=== PATIENT | female | born 1945 | race Caucasian/White ===

== ENCOUNTER 2017-02-18 10:42 | Emergency (ER) | payer MEDICARE, BC ==
[~2017-02-18 10:42] MED LIST: ANTIVERT25 M1 PO; CALCIUM600 M1 PO; CARAFATE1 GM/10 M1 PO; CARBIDOPA-LEVO E1 EA PO; CLONAZEPAM1 M2 PO; CRESTOR20 MG/TAB PO; LANSOPRAZOL-AM1 EACH PO; LISINOPRIL-HCT1 EAC1 PO; MACROBID 100 M100 M1 PO; MULTAQ400 M1 PO; NORCO 5-325 TA1 EACH PO; POTASSIUM CHLO10 ME2 PO; PROTONIX40 M2 PO; PYRIDIUM200 M2 PO; SERTRALINE HCL100 M5 PO; SINEMET 25-1001 EAC1 PO; VISINE TEARS DR15 ML OP
[2017-02-18] MEDS ORDERED: PROTONIX40 M2 PO (10:48)
[2017-02-18] MEDS ORDERED: POLYETHYLENE GL17 G1 PO (10:48)
[2017-02-18] MEDS ORDERED: PRINIVIL20 M1 PO (10:49)
[2017-02-18] MEDS ORDERED: FERROUS GLUCON240 MG PO (10:52)
[2017-02-18 11:34] LABS: BASO % 0.7 % (0-2); EOS % 5.3 % (0-7); EOSINOPHIL ABSOLUTE COUNT 0.2 tho/cmm (0.0-0.7); HCT-HEMATOCRIT 32.9 % (34.0-49.0); HGB-HEMOGLOBIN 11.1 gm/dl (12.0-15.5); LYMPH % 34.5 % (20-45); LYMPH ABSOLUTE COUNT 1.4 tho/cmm (0.8-4.5); MCH (MEAN CORPUSCULAR HGB) 30.6 pg (28.0-32.0); MCHC MEAN CORPUSCULAR HGB CONC 33.7 % (32.0-36.0); MCV (MEAN CELL VOLUME) 90.6 fl (82.0-96.0); MEAN PLATELET VOLUME 9.8 cmc (9.4-12.4); MONO % 9.2 % (0-12); MONOCYTE ABSOLUTE COUNT 0.4 tho/cmm (0.0-1.2); NEUTROPHIL ABSOLUTE COUNT 2.1 tho/cmm (1.6-8.0); NEUTROPHIL-AUTOMATED 2.1 tho/cmm (1.6-8.0); NEUTROPHILS % 50.3 % (40-80); PLATELET COUNT 229 tho/cmm (150-450); RED BLOOD COUNT 3.63 mil/cmm (4.00-5.20); RED CELL DISTRIBUTION WIDTH 13.9 % (12.4-16.4); WHITE BLOOD COUNT 4.1 tho/cmm (4.0-10.0)
[2017-02-18 11:53] LABS: URINE BILIRUBIN NEGATIVE (NEG); URINE BLOOD NEGATIVE (NEG); URINE GLUCOSE (UA) NEGATIVE (NEG); URINE KETONE SMALL (NEG); URINE LEUKOCYTE ESTERASE NEGATIVE (NEG); URINE NITRITE NEGATIVE (NEG); URINE PROTEIN NEGATIVE (NEG); URINE SPECIFIC GRAVITY 1.015 (1.003-1.030)
[2017-02-18 11:55] LABS: URINE APPEARANCE CLEAR; URINE COLOR YELLOW
[2017-02-18 11:57] LABS: ALB/GLOB RATIO 1.1 (0.8-2.0); ALBUMIN 3.7 g/dl (3.5-5.0); ALKALINE PHOSPHATASE 70 U/L (33-138); ALT/SGPT 14 U/L (12-78); ANION GAP 14 mmol/L (0-20); AST/SGOT 27 U/L (10-40); BILIRUBIN,TOTAL 0.3 mg/dl (0-1.5); BLOOD UREA NITROGEN 9 mg/dl (6-24); CALCIUM 9.1 mg/dl (8.5-10.5); CARBON DIOXIDE-VENOUS 25 mmol/L (22-32); CHLORIDE 103 mmol/l (96-110); CREATININE 0.78 mg/dl (0.50-1.10); GLUCOSE 85 mg/dL (70-110); LIPASE 145 U/L (73-393); POTASSIUM 4.3 mmol/L (3.7-5.1); SODIUM 138 mmol/L (135-145); eGFR VALUE FOR BLACK 87 mL/Min
[2017-02-18 12:02] LABS: URINE RBC 0 /[HPF] (0-5); URINE WBC 0 /[HPF] (0-5)
[2017-02-18] MEDS ORDERED: EYE DROPS15 M3 OP (13:12)
[2017-02-18] MEDS ORDERED: SENOKOT-S TABL1 EACH PO (14:16)
[2017-05-15] MEDS ORDERED: PROPRANOLOL HCL20 M2 PO (08:24)
[2017-05-15] MEDS ORDERED: DIFLUCAN100 M1 PO (08:25)
== END 2017-02-18 14:41 ==
LOC: EDMED 10:42
PROVIDERS: Emergency Medicine
DX: K59.00 Constipation, unspecified (principal); M54.5 Low back pain; I48.91 Unspecified atrial fibrillation; I25.10 Atherosclerotic heart disease of native coronary artery without angina pectoris; I10 Essential (primary) hypertension; G20 Parkinson's disease; Z90.710 Acquired absence of both cervix and uterus; Z98.890 Other specified postprocedural states; Z79.82 Long term (current) use of aspirin; Z79.899 Other long term (current) drug therapy
CPT/HCPCS: J1170; J2405; Q9967

== ENCOUNTER 2017-04-05 21:00 | Observation (INO) | payer MEDICARE, BC ==
[~2017-04-05 21:00] MED LIST changes: +EYE DROPS15 M3 OP; +FERROUS GLUCON240 MG PO; +POLYETHYLENE GL17 G1 PO; +PRINIVIL20 M1 PO; +SENOKOT-S TABL1 EACH PO
[2017-04-05 21:55] LABS: BASO % 0.3 % (0-2); EOS % 3.8 % (0-7); EOSINOPHIL ABSOLUTE COUNT 0.1 tho/cmm (0.0-0.7); HCT-HEMATOCRIT 25.1 % (34.0-49.0); HGB-HEMOGLOBIN 8.7 gm/dl (12.0-15.5); LYMPH ABSOLUTE COUNT 1.4 tho/cmm (0.8-4.5); MCH (MEAN CORPUSCULAR HGB) 29.3 pg (28.0-32.0); MCHC MEAN CORPUSCULAR HGB CONC 34.7 % (32.0-36.0); MCV (MEAN CELL VOLUME) 84.5 fl (82.0-96.0); MEAN PLATELET VOLUME 9.1 cmc (9.4-12.4); MONO % 11.9 % (0-12); MONOCYTE ABSOLUTE COUNT 0.4 tho/cmm (0.0-1.2); NEUTROPHIL ABSOLUTE COUNT 1.5 tho/cmm (1.6-8.0); NEUTROPHIL-AUTOMATED 1.5 tho/cmm (1.6-8.0); PLATELET COUNT 300 tho/cmm (150-450); RED BLOOD COUNT 2.97 mil/cmm (4.00-5.20); RED CELL DISTRIBUTION WIDTH 13.1 % (12.4-16.4); URINE BILIRUBIN NEGATIVE (NEG); URINE BLOOD SMALL (NEG); URINE GLUCOSE (UA) NEGATIVE (NEG); URINE KETONE NEGATIVE (NEG); URINE LEUKOCYTE ESTERASE POSITIVE (NEG); URINE NITRITE NEGATIVE (NEG); URINE PROTEIN NEGATIVE (NEG); WHITE BLOOD COUNT 3.4 tho/cmm (4.0-10.0)
[2017-04-05 21:56] LABS: URINE APPEARANCE CLOUDY; URINE COLOR YELLOW
[2017-04-05 22:01] LABS: URINE RBC 0 /[HPF] (0-5); URINE WBC 15-20 /[HPF] (0-5)
[2017-04-05 22:12] LABS: ALBUMIN 3.3 g/dl (3.5-5.0); ALKALINE PHOSPHATASE 69 U/L (33-138); ALT/SGPT 11 U/L (12-78); ANION GAP 11 mmol/L (0-20); AST/SGOT 18 U/L (10-40); BILIRUBIN,TOTAL 0.3 mg/dl (0-1.5); BLOOD UREA NITROGEN 6 mg/dl (6-24); CALCIUM 8.6 mg/dl (8.5-10.5); CARBON DIOXIDE-VENOUS 26 mmol/L (22-32); CHLORIDE 102 mmol/l (96-110); CREATININE 0.71 mg/dl (0.50-1.10); GLUCOSE 94 mg/dL (70-110); LIPASE 144 U/L (73-393); SODIUM 136 mmol/L (135-145); eGFR VALUE FOR BLACK >90 mL/Min
[2017-04-05 22:17] LABS: POTASSIUM 2.9 mmol/L (3.7-5.1)
[2017-04-05 22:44] LABS: PROCALCITONIN <0.05 ng/ml (0.05-0.09)
[2017-04-06 03:17] LABS: POTASSIUM 3.3 mmol/L (3.7-5.1)
[2017-04-06 03:20] LABS: TSH-THYROID STIMULATING HORM. 0.72 uIU/ml (0.40-3.80)
[2017-04-06 06:52] LABS: BASO % 0.4 % (0-2); EOS % 3.4 % (0-7); EOSINOPHIL ABSOLUTE COUNT 0.1 tho/cmm (0.0-0.7); HGB-HEMOGLOBIN 7.8 gm/dl (12.0-15.5); LYMPH % 40.8 % (20-45); LYMPH ABSOLUTE COUNT 1.1 tho/cmm (0.8-4.5); MCH (MEAN CORPUSCULAR HGB) 28.6 pg (28.0-32.0); MCV (MEAN CELL VOLUME) 85.3 fl (82.0-96.0); MEAN PLATELET VOLUME 9.2 cmc (9.4-12.4); MONO % 9.4 % (0-12); MONOCYTE ABSOLUTE COUNT 0.3 tho/cmm (0.0-1.2); NEUTROPHIL ABSOLUTE COUNT 1.2 tho/cmm (1.6-8.0); NEUTROPHIL-AUTOMATED 1.2 tho/cmm (1.6-8.0); PLATELET COUNT 257 tho/cmm (150-450); RED BLOOD COUNT 2.73 mil/cmm (4.00-5.20); RED CELL DISTRIBUTION WIDTH 13.2 % (12.4-16.4); WHITE BLOOD COUNT 2.7 tho/cmm (4.0-10.0)
[2017-04-06 06:54] LABS: HCT-HEMATOCRIT 23.3 % (34.0-49.0); MCHC MEAN CORPUSCULAR HGB CONC 33.5 % (32.0-36.0)
[2017-04-06 06:59] LABS: BLOOD UREA NITROGEN 3 mg/dl (6-24); CALCIUM 8.2 mg/dl (8.5-10.5); CARBON DIOXIDE-VENOUS 23 mmol/L (22-32); CHLORIDE 115 mmol/l (96-110); CREATININE 0.57 mg/dl (0.50-1.10); GLUCOSE 78 mg/dL (70-110); eGFR VALUE FOR BLACK >90 mL/Min
[2017-04-06 07:09] LABS: ANION GAP 13 mmol/L (0-20); SODIUM 146 mmol/L (135-145)
[2017-04-06 07:10] LABS: POTASSIUM 4.8 mmol/L (3.7-5.1)
[2017-04-06] MEDS ORDERED: DICYCLOMINE HCL20 M1 PO (11:34)
[2017-04-06] MEDS ORDERED: MIRALAX17 G2 PO (11:34)
[2017-04-07 05:07] LABS: BASO % 0.9 % (0-2); EOS % 4.7 % (0-7); EOSINOPHIL ABSOLUTE COUNT 0.2 tho/cmm (0.0-0.7); HGB-HEMOGLOBIN 7.8 gm/dl (12.0-15.5); LYMPH % 36.8 % (20-45); LYMPH ABSOLUTE COUNT 1.2 tho/cmm (0.8-4.5); MCH (MEAN CORPUSCULAR HGB) 28.7 pg (28.0-32.0); MCHC MEAN CORPUSCULAR HGB CONC 32.9 % (32.0-36.0); MCV (MEAN CELL VOLUME) 87.1 fl (82.0-96.0); MEAN PLATELET VOLUME 9.2 cmc (9.4-12.4); MONO % 12.6 % (0-12); MONOCYTE ABSOLUTE COUNT 0.4 tho/cmm (0.0-1.2); NEUTROPHIL ABSOLUTE COUNT 1.4 tho/cmm (1.6-8.0); NEUTROPHIL-AUTOMATED 1.4 tho/cmm (1.6-8.0); PLATELET COUNT 263 tho/cmm (150-450); RED BLOOD COUNT 2.72 mil/cmm (4.00-5.20); RED CELL DISTRIBUTION WIDTH 13.8 % (12.4-16.4); WHITE BLOOD COUNT 3.2 tho/cmm (4.0-10.0)
[2017-04-07 05:08] LABS: HCT-HEMATOCRIT 23.7 % (34.0-49.0)
[2017-04-07 05:18] LABS: ANION GAP 11 mmol/L (0-20); BLOOD UREA NITROGEN 3 mg/dl (6-24); CALCIUM 8.2 mg/dl (8.5-10.5); CARBON DIOXIDE-VENOUS 25 mmol/L (22-32); CHLORIDE 108 mmol/l (96-110); CREATININE 0.62 mg/dl (0.50-1.10); GLUCOSE 84 mg/dL (70-110); POTASSIUM 4.1 mmol/L (3.7-5.1); SODIUM 140 mmol/L (135-145); eGFR VALUE FOR BLACK >90 mL/Min
[2017-05-15] MEDS ORDERED: PROPRANOLOL HCL20 M2 PO (08:24)
[2017-05-15] MEDS ORDERED: DIFLUCAN100 M1 PO (08:25)
== END 2017-04-07 15:06 ==
LOC: EDMED 21:00 → EMR2 04-06 02:07 → 5EB 04-06 02:20
PROVIDERS: Emergency Medicine; Hospitalist; Registered Nurse; ADMIT Hospitalist
DX: R53.1 Weakness (principal); N39.0 Urinary tract infection, site not specified; E87.6 Hypokalemia; R00.1 Bradycardia, unspecified; D50.9 Iron deficiency anemia, unspecified; I10 Essential (primary) hypertension; I48.0 Paroxysmal atrial fibrillation; I25.10 Atherosclerotic heart disease of native coronary artery without angina pectoris; K57.30 Diverticulosis of large intestine without perforation or abscess without bleeding; D72.819 Decreased white blood cell count, unspecified; R42 Dizziness and giddiness; G20 Parkinson's disease; F02.80 Dementia in other diseases classified elsewhere, unspecified severity, without behavioral disturbance, psychotic disturbance, mood disturbance, and anxiety; F32.9 Major depressive disorder, single episode, unspecified; F41.9 Anxiety disorder, unspecified; Z85.51 Personal history of malignant neoplasm of bladder; Z90.710 Acquired absence of both cervix and uterus; Z79.899 Other long term (current) drug therapy; Z98.890 Other specified postprocedural states
CPT/HCPCS: G0378; G8978-GP-CI; G8979-GP-CH; G8980-GP-CI; G8987-GO-CJ; G8988-GO-CI; G8989-GO-CH; G8989-GO-CJ; J0696; J1650; J7030

== ENCOUNTER 2017-04-13 18:21 | Inpatient (IN) | payer MEDICARE, BC ==
[~2017-04-13 18:21] MED LIST changes: +DICYCLOMINE HCL20 M1 PO; +MIRALAX17 G2 PO
[2017-04-13] MEDS ORDERED: IRON18 M1 PO (18:59)
[2017-04-13] MEDS ORDERED: SENNA PLUS TAB1 EAC1 PO (19:00)
[2017-04-13] MEDS ORDERED: SERTRALINE HCL100 M5 PO (19:02)
[2017-04-13] MEDS ORDERED: DULCOLAX STOOL100 M1 PO (19:03)
[2017-04-13] MEDS ORDERED: RESTORIL7.5 MG/CAP PO (19:03)
[2017-04-13 19:06] LABS: BASO % 0.7 % (0-2); EOS % 3.1 % (0-7); EOSINOPHIL ABSOLUTE COUNT 0.1 tho/cmm (0.0-0.7); HGB-HEMOGLOBIN 7.9 gm/dl (12.0-15.5); LYMPH % 37.5 % (20-45); LYMPH ABSOLUTE COUNT 1.1 tho/cmm (0.8-4.5); MCH (MEAN CORPUSCULAR HGB) 28.1 pg (28.0-32.0); MCV (MEAN CELL VOLUME) 84.3 fl (82.0-96.0); MEAN PLATELET VOLUME 9.2 cmc (9.4-12.4); MONO % 11.3 % (0-12); MONOCYTE ABSOLUTE COUNT 0.3 tho/cmm (0.0-1.2); NEUTROPHIL ABSOLUTE COUNT 1.4 tho/cmm (1.6-8.0); NEUTROPHIL-AUTOMATED 1.4 tho/cmm (1.6-8.0); NEUTROPHILS % 47.4 % (40-80); PLATELET COUNT 271 tho/cmm (150-450); RED BLOOD COUNT 2.81 mil/cmm (4.00-5.20); RED CELL DISTRIBUTION WIDTH 13.7 % (12.4-16.4); WHITE BLOOD COUNT 2.9 tho/cmm (4.0-10.0)
[2017-04-13 19:09] LABS: HCT-HEMATOCRIT 23.7 % (34.0-49.0); MCHC MEAN CORPUSCULAR HGB CONC 33.3 % (32.0-36.0)
[2017-04-13 19:21] LABS: ALBUMIN 3.3 g/dl (3.5-5.0); ALKALINE PHOSPHATASE 68 U/L (33-138); ALT/SGPT 11 U/L (12-78); ANION GAP 13 mmol/L (0-20); AST/SGOT 16 U/L (10-40); BILIRUBIN,TOTAL 0.2 mg/dl (0-1.5); BLOOD UREA NITROGEN 5 mg/dl (6-24); CALCIUM 8.3 mg/dl (8.5-10.5); CARBON DIOXIDE-VENOUS 22 mmol/L (22-32); CHLORIDE 102 mmol/l (96-110); CREATININE 0.68 mg/dl (0.50-1.10); GLUCOSE 102 mg/dL (70-110); POTASSIUM 3.2 mmol/L (3.7-5.1); SODIUM 134 mmol/L (135-145); eGFR VALUE FOR BLACK >90 mL/Min
[2017-04-13 19:56] LABS: URINE APPEARANCE CLEAR; URINE BILIRUBIN NEGATIVE (NEG); URINE BLOOD NEGATIVE (NEG); URINE COLOR YELLOW; URINE GLUCOSE (UA) NEGATIVE (NEG); URINE KETONE NEGATIVE (NEG); URINE LEUKOCYTE ESTERASE NEGATIVE (NEG); URINE NITRITE NEGATIVE (NEG); URINE PROTEIN NEGATIVE (NEG)
[2017-04-14 00:07] LABS: C-REACTIVE PROTEIN <0.3 mg/dl (0-0.9)
[2017-04-14 05:39] LABS: BASO % 0.4 % (0-2); EOS % 4.8 % (0-7); EOSINOPHIL ABSOLUTE COUNT 0.1 tho/cmm (0.0-0.7); HGB-HEMOGLOBIN 7.3 gm/dl (12.0-15.5); LYMPH % 36.7 % (20-45); LYMPH ABSOLUTE COUNT 0.8 tho/cmm (0.8-4.5); MCH (MEAN CORPUSCULAR HGB) 28.2 pg (28.0-32.0); MCV (MEAN CELL VOLUME) 84.9 fl (82.0-96.0); MEAN PLATELET VOLUME 9.3 cmc (9.4-12.4); MONO % 13.1 % (0-12); MONOCYTE ABSOLUTE COUNT 0.3 tho/cmm (0.0-1.2); PLATELET COUNT 236 tho/cmm (150-450); RED BLOOD COUNT 2.59 mil/cmm (4.00-5.20); RED CELL DISTRIBUTION WIDTH 13.8 % (12.4-16.4); WHITE BLOOD COUNT 2.3 tho/cmm (4.0-10.0)
[2017-04-14 05:48] LABS: MCHC MEAN CORPUSCULAR HGB CONC 33.2 % (32.0-36.0)
[2017-04-14 05:53] LABS: ANION GAP 11 mmol/L (0-20); BLOOD UREA NITROGEN 4 mg/dl (6-24); CALCIUM 8.2 mg/dl (8.5-10.5); CARBON DIOXIDE-VENOUS 24 mmol/L (22-32); CHLORIDE 111 mmol/l (96-110); CREATININE 0.53 mg/dl (0.50-1.10); GLUCOSE 86 mg/dL (70-110); POTASSIUM 3.9 mmol/L (3.7-5.1); SODIUM 142 mmol/L (135-145); eGFR VALUE FOR BLACK >90 mL/Min
[2017-04-14 12:50] LABS: IRON BINDING CAPACITY 343 ug/dl (250-450)
[2017-04-14 13:48] LABS: IRON <10 ug/dl (37-170)
[2017-04-14 19:05] LABS: FERRITIN 5 ng/ml (8-250)
[2017-04-15 05:47] LABS: BASO % 0.6 % (0-2); EOS % 3.1 % (0-7); EOSINOPHIL ABSOLUTE COUNT 0.1 tho/cmm (0.0-0.7); HGB-HEMOGLOBIN 8.8 gm/dl (12.0-15.5); LYMPH % 30.8 % (20-45); LYMPH ABSOLUTE COUNT 1.1 tho/cmm (0.8-4.5); MCHC MEAN CORPUSCULAR HGB CONC 32.6 % (32.0-36.0); MEAN PLATELET VOLUME 9.4 cmc (9.4-12.4); MONO % 11.7 % (0-12); MONOCYTE ABSOLUTE COUNT 0.4 tho/cmm (0.0-1.2); NEUTROPHIL ABSOLUTE COUNT 1.9 tho/cmm (1.6-8.0); NEUTROPHIL-AUTOMATED 1.9 tho/cmm (1.6-8.0); NEUTROPHILS % 53.8 % (40-80); PLATELET COUNT 229 tho/cmm (150-450); RED BLOOD COUNT 3.14 mil/cmm (4.00-5.20); RED CELL DISTRIBUTION WIDTH 14.1 % (12.4-16.4)
[2017-04-15 05:50] LABS: WHITE BLOOD COUNT 3.5 tho/cmm (4.0-10.0)
[2017-04-15 05:58] LABS: ANION GAP 12 mmol/L (0-20); BLOOD UREA NITROGEN 8 mg/dl (6-24); CALCIUM 7.8 mg/dl (8.5-10.5); CARBON DIOXIDE-VENOUS 23 mmol/L (22-32); CHLORIDE 108 mmol/l (96-110); CREATININE 0.61 mg/dl (0.50-1.10); GLUCOSE 88 mg/dL (70-110); POTASSIUM 3.8 mmol/L (3.7-5.1); SODIUM 139 mmol/L (135-145); eGFR VALUE FOR BLACK >90 mL/Min
[2017-04-15] MEDS ORDERED: VITAMIN B-121000 MC1 PO (11:56)
[2017-05-15] MEDS ORDERED: PROPRANOLOL HCL20 M2 PO (08:24)
[2017-05-15] MEDS ORDERED: DIFLUCAN100 M1 PO (08:25)
== END 2017-04-15 13:35 | disposition home health service (06) | DRG 641 ==
LOC: EDMED 18:21 → EMR2 21:17 → CAR1 22:17
PROVIDERS: Emergency Medicine; Family Medicine; Internal Medicine; Internal Medicine Hematology & Oncology; Nurse Practitioner; ADMIT Hospitalist
PROC: 30233N1 Transfusion of Nonautologous Red Blood Cells into Peripheral Vein, Percutaneous Approach (ICD-10-PCS; principal; 2017-04-14)
DX: E87.6 Hypokalemia (principal); E86.0 Dehydration; G20 Parkinson's disease; D70.9 Neutropenia, unspecified; I48.0 Paroxysmal atrial fibrillation; D51.0 Vitamin B12 deficiency anemia due to intrinsic factor deficiency; J44.9 Chronic obstructive pulmonary disease, unspecified; F32.9 Major depressive disorder, single episode, unspecified; F41.9 Anxiety disorder, unspecified; R53.1 Weakness; I25.10 Atherosclerotic heart disease of native coronary artery without angina pectoris; E78.5 Hyperlipidemia, unspecified; Z85.51 Personal history of malignant neoplasm of bladder; Z88.8 Allergy status to other drugs, medicaments and biological substances; Z79.899 Other long term (current) drug therapy
CPT/HCPCS: G0378; G8979-GP-CI; G8980-GP-CJ; G8987-GO-CI; G8988-GO-CI; G8989-GO-CI; J3480; J7030; J7050; P9016